=== PATIENT | female | born 1985 | race Caucasian/White ===

== ENCOUNTER 2017-10-29 20:43 | Emergency (ER) | payer OTHER ==
[~2017-10-29] VITALS: Ht 170.2 cm; Wt 92.1 kg
[2017-10-29] MEDS ORDERED: LABETALOL HCL100 MG (21:18)
[2017-10-29] MEDS ORDERED: OBSTETRIX DHA1 EACH (21:18)
[2017-10-29] MEDS ORDERED: SYNTHROID50 MCG (21:19)
== END 2017-10-30 06:05 | disposition home or self-care (01) ==
LOC: ER 20:43
DX: O16.1 Unspecified maternal hypertension, first trimester (principal); Z34.01 Encounter for supervision of normal first pregnancy, first trimester

== ENCOUNTER 2018-02-25 08:46 | Outpatient (CLI) | payer OTHER ==
[~2018-02-25 08:46] MED LIST: LABETALOL HCL100 MG; OBSTETRIX DHA1 EACH; SYNTHROID50 MCG
== END 2018-02-25 10:11 | disposition home or self-care (01) ==
LOC: NST 08:46
DX: Z34.82 Encounter for supervision of other normal pregnancy, second trimester (principal)

== ENCOUNTER 2018-03-20 09:50 | Outpatient (CLI) | payer OTHER ==
[2018-03-20] MEDS ORDERED: ALDOMET500 MG PO (12:50)
[2018-03-20] MEDS ORDERED: NIFE60TA3 PO (12:51)
== END 2018-03-20 10:56 | disposition still patient (30) ==
LOC: NST 09:50
DX: O34.33 Maternal care for cervical incompetence, third trimester (principal); Z34.83 Encounter for supervision of other normal pregnancy, third trimester

== ENCOUNTER 2018-03-20 11:10 | Inpatient (IN) | payer OTHER ==
[~2018-03-20] VITALS: Ht 170.2 cm; Wt 88.9 kg
[2018-03-20] MEDS ORDERED: ALDOMET500 MG PO (12:50)
[2018-03-20] MEDS ORDERED: NIFE60TA3 PO (12:51)
== END 2018-03-26 18:03 | DRG 831 ==
LOC: OB/GYN 11:10 → LDR 11:10 → OB/GYN 03-21 20:07
PROC: 4A1HXCZ Monitoring of Products of Conception, Cardiac Rate, External Approach (ICD-10-PCS; 2018-03-20)
PROC: BY4FZZZ Ultrasonography of Third Trimester, Single Fetus (ICD-10-PCS; principal; 2018-03-25)
DX: O47.03 False labor before 37 completed weeks of gestation, third trimester (principal); O34.33 Maternal care for cervical incompetence, third trimester; O13.3 Gestational [pregnancy-induced] hypertension without significant proteinuria, third trimester; Z34.83 Encounter for supervision of other normal pregnancy, third trimester
CPT/HCPCS: 240

== ENCOUNTER 2018-04-09 08:20 | Outpatient (CLI) | payer OTHER ==
[~2018-04-09 08:20] MED LIST changes: +ALDOMET500 MG PO; +NIFE60TA3 PO
== END 2018-04-09 08:54 | disposition home or self-care (01) ==
LOC: NST 08:20
DX: O34.33 Maternal care for cervical incompetence, third trimester (principal); Z34.83 Encounter for supervision of other normal pregnancy, third trimester

== ENCOUNTER 2018-04-24 08:25 | Outpatient (CLI) | payer OTHER | END 2018-04-24 09:24 | disposition home or self-care (01) | LOC: NST 08:25 | DX: O34.33 Maternal care for cervical incompetence, third trimester (principal); Z34.03 Encounter for supervision of normal first pregnancy, third trimester ==

== ENCOUNTER 2018-04-28 11:10 | Outpatient (CLI) | payer OTHER | END 2018-04-28 14:05 | disposition HB | LOC: NST 11:10 | DX: Z34.83 Encounter for supervision of other normal pregnancy, third trimester (principal) ==

== ENCOUNTER 2018-05-08 10:55 | Outpatient (CLI) | payer OTHER | END 2018-05-08 11:50 | disposition home or self-care (01) | LOC: NST 10:55 | DX: Z34.83 Encounter for supervision of other normal pregnancy, third trimester (principal) ==

== ENCOUNTER 2018-05-13 09:42 | Outpatient (CLI) | payer OTHER | END 2018-05-13 10:26 | disposition still patient (30) | LOC: NST 09:42 | DX: Z34.83 Encounter for supervision of other normal pregnancy, third trimester (principal) ==

== ENCOUNTER 2018-05-13 10:30 | Inpatient (IN) | payer OTHER ==
[~2018-05-13] VITALS: Ht 170.2 cm; Wt 90.3 kg
== END 2018-05-16 12:32 | DRG 805 ==
LOC: LDR 10:30 → OB/GYN 05-14 14:16
PROVIDERS: ADMIT Obstetrics & Gynecology
PROC: 10E0XZZ Delivery of Products of Conception, External Approach (ICD-10-PCS; principal; 2018-05-14)
PROC: 3E033VJ Introduction of Other Hormone into Peripheral Vein, Percutaneous Approach (ICD-10-PCS; 2018-05-14)
PROC: 0W8NXZZ Division of Female Perineum, External Approach (ICD-10-PCS; 2018-05-14)
PROC: 4A1HXCZ Monitoring of Products of Conception, Cardiac Rate, External Approach (ICD-10-PCS; 2018-05-14)
DX: O60.14X0 Preterm labor third trimester with preterm delivery third trimester, not applicable or unspecified (principal); O34.33 Maternal care for cervical incompetence, third trimester; Z37.0 Single live birth; Z3A.36 36 weeks gestation of pregnancy; O65.5 Obstructed labor due to abnormality of maternal pelvic organs

== ENCOUNTER 2018-05-19 18:34 | Emergency (ER) | payer OTHER ==
[~2018-05-19] VITALS: Ht 170.2 cm; Wt 83.5 kg
[2018-05-19] MEDS ORDERED: LABETALOL HCL200 MG (18:40)
[2018-05-19] MEDS ORDERED: FOLIC ACID1 MG (18:41)
[2018-05-19] MEDS ORDERED: IBUPROFEN600 MG (18:42)
[2018-05-24] MEDS ORDERED: ALDOMET500 MG (23:46)
== END 2018-05-19 21:41 | disposition home or self-care (01) ==
LOC: ER 18:34
DX: I16.0 Hypertensive urgency (principal); I10 Essential (primary) hypertension

== ENCOUNTER → 2018-05-24 | Emergency (ER) | payer OTHER ==
[~2018-05-24] VITALS: Ht 170.2 cm; Wt 81.6 kg
[~2018-05-24] MED LIST changes: +ALDOMET500 MG; +FOLIC ACID1 MG; +IBUPROFEN600 MG; +LABETALOL HCL200 MG; +LOSARTAN POTASS50 MG PO; +VISTARIL50 MG PO
== END | disposition home or self-care (01) ==
LOC: ER 23:36
DX: I16.0 Hypertensive urgency (principal); I10 Essential (primary) hypertension; F06.4 Anxiety disorder due to known physiological condition